=== PATIENT | female | born 1950 | race Caucasian/White ===

== ENCOUNTER → 2016-10-23 | Outpatient (CLI) | payer OTHER, BC | LOC: CIMAGING 11:38 | PROVIDERS: ATTEND Physician Assistant | DX: J45.909 Unspecified asthma, uncomplicated (principal); R91.1 Solitary pulmonary nodule | CPT/HCPCS: 71020-PO ==

== ENCOUNTER → 2016-10-24 | Outpatient (CLI) | payer OTHER, BC | LOC: FIMAGING 15:11 | PROVIDERS: ATTEND Physician Assistant | DX: R91.1 Solitary pulmonary nodule (principal) ==

== ENCOUNTER → 2016-10-27 | Outpatient (CLI) | payer OTHER, BC | LOC: CIMAGING 11:15 | PROVIDERS: ATTEND Physician Assistant | DX: R91.8 Other nonspecific abnormal finding of lung field (principal); K44.9 Diaphragmatic hernia without obstruction or gangrene; Z90.13 Acquired absence of bilateral breasts and nipples | CPT/HCPCS: 71250-PO ==

== ENCOUNTER → 2016-11-24 | Outpatient (CLI) | payer OTHER, BC | LOC: CIMAGING 10:07 | PROVIDERS: ATTEND Internal Medicine Pulmonary Disease | DX: R91.8 Other nonspecific abnormal finding of lung field (principal); J45.909 Unspecified asthma, uncomplicated | CPT/HCPCS: 71250-PO ==

== ENCOUNTER → 2017-01-05 | Outpatient (CLI) | payer OTHER, BC | LOC: CIMAGING 10:41 | PROVIDERS: ATTEND Internal Medicine | DX: Z12.31 Encounter for screening mammogram for malignant neoplasm of breast (principal); Z80.3 Family history of malignant neoplasm of breast | CPT/HCPCS: G0202 ==

== ENCOUNTER → 2017-06-21 | Outpatient (CLI) | payer OTHER, BC | LOC: FIMAGING 10:58 | PROVIDERS: ATTEND Internal Medicine Pulmonary Disease | DX: J21.9 Acute bronchiolitis, unspecified (principal); R91.1 Solitary pulmonary nodule ==

== ENCOUNTER → 2017-11-09 | Outpatient (CLI) | payer OTHER, BC | LOC: FIMAGING 11:15 | PROVIDERS: ATTEND Internal Medicine | DX: T17.890A Other foreign object in other parts of respiratory tract causing asphyxiation, initial encounter (principal); J21.9 Acute bronchiolitis, unspecified; J42 Unspecified chronic bronchitis ==

== ENCOUNTER → 2018-01-24 | Outpatient (CLI) | payer OTHER, BC | LOC: CIMAGING 09:54 | PROVIDERS: ATTEND Physician Assistant | DX: Z12.31 Encounter for screening mammogram for malignant neoplasm of breast (principal) ==

== ENCOUNTER → 2018-07-08 | Outpatient (CLI) | payer OTHER, BC | LOC: BRMIMAGING 10:05 | PROVIDERS: ATTEND Physician Assistant | DX: Z13.820 Encounter for screening for osteoporosis (principal); M85.89 Other specified disorders of bone density and structure, multiple sites; Z78.0 Asymptomatic menopausal state ==